=== PATIENT | female | born 2000 | race American Indian/Alaskan Native ===

== ENCOUNTER 2020-03-15 17:26 | Emergency (ER) | payer OTHER ==
[2020-03-15 17:33] VITALS: BP 126/81
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
--- NOTE | 2020-03-15 22:04 | XRay Report ---
LEFT RIBS HISTORY: Left-sided chest and back pain COMPARISON: None. TECHNIQUE: 3 views of the left ribs were obtained. FINDINGS: Bones: No fracture or dislocation. Joint spaces: Maintained. Soft tissues: No significant abnormality. Additional findings: None. IMPRESSION: 1. No significant abnormality. Signer Name: Renan Cuellar MD Signed: 03/15/2020 10:00 PM Workstation Name: [id number]
== END 2020-03-15 22:27 | disposition home or self-care (01) ==
LOC: ED 17:26
DX: S20.212A Contusion of left front wall of thorax, initial encounter (principal); S00.83XA Contusion of other part of head, initial encounter; J45.909 Unspecified asthma, uncomplicated; F17.200 Nicotine dependence, unspecified, uncomplicated; F12.10 Cannabis abuse, uncomplicated; Z79.899 Other long term (current) drug therapy; V49.59XA Passenger injured in collision with other motor vehicles in traffic accident, initial encounter; Y93.89 Activity, other specified; Y92.488 Other paved roadways as the place of occurrence of the external cause; Y99.8 Other external cause status
CPT/HCPCS: 70450

== ENCOUNTER 2022-05-26 18:17 | Emergency (ER) | payer OTHER ==
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
[2022-05-27] MEDS ORDERED: HYDROcodone/ACETAMINOPHEN 5-325 MG TAB PO ONE (02:02)
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
[2022-05-27 05:03] VITALS: BP 127/60
== END 2022-05-27 05:03 | disposition home or self-care (01) ==
LOC: EDUNIT# → ED 18:17
DX: S16.1XXA Strain of muscle, fascia and tendon at neck level, initial encounter (principal); S76.012A Strain of muscle, fascia and tendon of left hip, initial encounter; S46.912A Strain of unspecified muscle, fascia and tendon at shoulder and upper arm level, left arm, initial encounter; S76.911A Strain of unspecified muscles, fascia and tendons at thigh level, right thigh, initial encounter; J45.909 Unspecified asthma, uncomplicated; F17.290 Nicotine dependence, other tobacco product, uncomplicated; V89.2XXA Person injured in unspecified motor-vehicle accident, traffic, initial encounter; Y93.89 Activity, other specified; Y92.89 Other specified places as the place of occurrence of the external cause; Y99.8 Other external cause status
CPT/HCPCS: 72040; 99283

== ENCOUNTER 2022-08-17 11:54 | Emergency (ER) | payer SELFPAY ==
[2022-08-17 12:39] VITALS: BP 133/78
[2022-08-17 14:19] LABS: Bilirubin,Urine NEG (Negative); Blood,Urine NEG (Negative); Color,Urine Straw (Yellow); Protein,Urine <15 mg/dL mg/dL (Negative)
[2022-08-17 14:38] LABS: Bacteria,Urine 1+ /HPF (Negative); Mucus,Urine FEW /HPF; Urobilinogen,Urine < 2 mg/dL (<2.0)
[2022-08-17 14:47] LABS: HCG Qualitative,Urine Negative (Negative)
--- NOTE | 2022-08-17 15:54 | Emergency Department Report ---
ED Dysuria HPI - HPI Chief Complaint: Urogenital-Female Stated Complaint: POSS UTI Time Seen by Provider: 08/17/22 15:26 Duration: 2 Days Severity: Mild Symptoms: Dysuria: No, Frequency: No, Suprapubic Pain: No, Flank Pain: No, Fever: No, Hematuria: No, Abdominal Pain: No, Previous UTI's: Yes Other History: Patient is a 22-year-old that comes to the ER with a change in her vaginal discharge. I believe she is concerned that she is . She denies any nausea vomiting or diarrhea. She denies back pain. Denies abdominal pain. Denies fever or chills. Denies dysuria. She states that her discharge is whitish is thicker than normal. She is not concerned for STDs. She has 1 male sexual partner. He has no symptoms. Patient states she is new to the area and needs a refill of her albuterol. ED Review of Systems ROS: Stated complaint: POSS UTI Other details as noted in HPI Comment: All other systems reviewed and negative ED Past Medical Hx - Past Medical History Previous Medical History?: Yes Hx Asthma: Yes - Surgical History Past Surgical History?: No - Family History Family history: no significant - Social History Smoking Status: Current Some Day Smoker Substance Use Type: Alcohol, Marijuana - Medications Home Medications: Home Medications Medication Instructions Recorded Confirmed Last Taken Type Naproxen 500 mg PO BID #20 tablet 03/15/20 Unknown Rx methOCARBAMOL [Robaxin TAB] 500 mg PO Q6H #20 tablet 03/15/20 Unknown Rx Naproxen 500 mg PO BID PRN #30 tab 05/27/22 Unknown Rx Albuterol Mdi (or & Nicu Only) 2 puff IH QID PRN #1 inhalation 08/17/22 Unknown Rx [ProAir HFA Inhaler] Dysuria Exam - Exam General: Vital signs noted. No distress. Alert and acting appropriately. Exam: Yes Moist Mucous Membranes, No CVA Tenderness, No Abdominal Tenderness, No Rigidity or Guarding Labs: Lab Results 08/17/22 Range/Units Unknown Urine Color Straw (Yellow) Urine Turbidity Clear (Clear) Urine pH 6.0 (5.0-7.0) Ur Specific [place] 1.002 L (1.003-1.030) Urine Protein <15 mg/dl (Negative) mg/dL Urine Glucose (UA) Neg (Negative) mg/dL Urine Ketones Neg (Negative) mg/dL Urine Blood Neg (Negative) Urine Nitrite Neg (Negative) Urine Bilirubin Neg (Negative) Urine Urobilinogen < 2 (<2.0) mg/dL Ur Leukocyte Esterase Tr (Negative) Urine WBC (Auto) 1.0 (0.0-6.0) /HPF Urine RBC (Auto) 1.0 (0.0-6.0) /HPF U Epithel Cells (Auto) 5.0 (0-13.0) /HPF Urine Bacteria (Auto) 1+ (Negative) /HPF Urine Mucus Few /HPF Urine HCG, Qual Negative (Negative) ED Course Vital Signs 08/17/22 12:37 Temperature 98.3 F Pulse Rate 99 H Respiratory 16 Rate Blood Pressure 133/78 [Right] O2 Sat by Pulse 100 Oximetry ED Medical Decision Making - Medical Decision Making Labs 08/17/22 Unknown Urine Color Straw Urine Turbidity Clear Urine pH 6.0 Ur Specific [place] 1.002 L Urine Protein <15 mg/dl Urine Glucose (UA) Neg Urine Ketones Neg Urine Blood Neg Urine Nitrite Neg Urine Bilirubin Neg Urine Urobilinogen < 2 Ur Leukocyte Esterase Tr Urine WBC (Auto) 1.0 Urine RBC (Auto) 1.0 U Epithel Cells (Auto) 5.0 Urine Bacteria (Auto) 1+ Urine Mucus Few Urine HCG, Qual Negative Vital Signs 08/17/22 12:37 Temperature 98.3 F Pulse Rate 99 H Respiratory 16 Rate Blood Pressure 133/78 [Right] O2 Sat by Pulse 100 Oximetry UA noted. negative. I discussed with patient her negative test and the results of her her urinalysis. Patient has no dysuria. No back pain. No fever. No CVA tenderness. No abdominal pain. Her abdominal exam is negative/benign. Patient is being discharged home with discharge plan of care including diet, activity, medication and follow-up. She verbalizes understanding of plan of care. I have given her a refill for her albuterol inhaler which she uses for her acute on chronic asthma. - Differential Diagnosis Rule out UTI/ Critical care attestation.: If time is entered above; I have spent that time in minutes in the direct care of this critically ill patient, excluding procedure time. ED Disposition Clinical Impression: Medication refill, Dysuria Disposition: 01 HOME / SELF CARE / HOMELESS Is pt being admited?: No Does the pt Need Aspirin: No Condition: Stable Instructions: Dysuria Additional Instructions: follow up with pcp and obgyn as we discussed referrals below Prescriptions: Albuterol Mdi (or & Nicu Only) [ProAir HFA Inhaler] 2 puff IH QID PRN #1 inhalation PRN Reason: Shortness Of Breath Referrals: AGRRETT GUTIERREZ MD [Staff Physician] - 3-5 Days LISA BOOKER MD [Staff Physician] - 3-5 Days Forms: Work/School Release Form(ED) Time of Disposition: 15:52
== END 2022-08-17 16:30 | disposition home or self-care (01) ==
LOC: ED 11:54
DX: R30.0 Dysuria (principal); Z76.0 Encounter for issue of repeat prescription; R35.0 Frequency of micturition; J45.909 Unspecified asthma, uncomplicated; F17.200 Nicotine dependence, unspecified, uncomplicated; F12.90 Cannabis use, unspecified, uncomplicated; Z72.89 Other problems related to lifestyle; Z79.899 Other long term (current) drug therapy
CPT/HCPCS: 81001; 81025; 99283